=== PATIENT | female | born 1995 | race Caucasian/White ===

== ENCOUNTER → 2021-10-13 | Emergency (ER) | payer OTHER ==
[~2021-10-13] VITALS: Ht 162.6 cm; Wt 59.0 kg
[~2021-10-13] MED LIST: FLEXERIL PO; MEDROLDOSEPACK PO
[2021-10-13 19:50] VITALS: BP 124/68
== END ==
LOC: M.ERS 17:24
DX: S16.1XXA Strain of muscle, fascia and tendon at neck level, initial encounter (principal); M25.511 Pain in right shoulder; M25.512 Pain in left shoulder; R51.9 Headache, unspecified; V43.62XA Car passenger injured in collision with other type car in traffic accident, initial encounter; Y93.89 Activity, other specified; Y92.411 Interstate highway as the place of occurrence of the external cause; Y99.8 Other external cause status